=== PATIENT | female | born 1975 | race Caucasian/White ===

== ENCOUNTER → 2016-05-09 | Outpatient (CLI) | payer BC ==
[~2016-05-09] MED LIST: BNDL2 PO; EPP3/2 IM; ESCI10TA17 PO
[2016-05-09 14:40] LABS: BASO % 0.2 %; BASO ABS # 0.02 K/uL (0-0.2); COMPLETE YES; EOS % 6.7 %; HEMATOCRIT 39.4 % (37-47); IG% 0.3 %; LYMPH % 17.7 %; LYMPH ABS # 2.11 K/uL (1.2-3.4); MEAN CELL VOLUME 83.7 fL (80-100); MEAN CORPUSCULAR HEMOGLOBIN 27.4 pg (25-34); MEAN CORPUSCULAR HGB CONC 32.7 g/dl (32-36); MEAN PLATELET VOLUME 10.8 fL (7.4-10.4); MONO % 3.5 %; NEUT % 71.6 %; PLATELET COUNT 298 K/uL (130-400); RED BLOOD COUNT 4.71 M/uL (4.2-5.4)
[2016-05-09 14:48] LABS: ESTIMATED AVERAGE GLUCOSE 120 mg/dl; HA1C FLAG Normal (Normal)
== END | disposition home or self-care (01) ==
LOC: C.LABBC 11:31
PROVIDERS: ATTEND Internal Medicine
DX: E66.9 Obesity, unspecified (principal); R53.83 Other fatigue

== ENCOUNTER → 2016-05-13 | Outpatient (CLI) | payer BC ==
--- NOTE | 2016-05-15 13:23 | POLYSOMNOGRAPH REPORT ---
REFERRING PHYSICIAN: Dr. Pedro Arora. CLINICAL DATA: A 41-year-old female with a BMI of 46.82, referred by her physician for evaluation of possible sleep apnea. She has a history of fatigue. She snores and has apnea at night. On the evening of 05/13/2016, a home sleep apnea test was performed using a [employer] type 3 monitor. RECORDING RESULTS: Total recording time was 10 hours. The patient's estimated sleep time and patient monitoring time was 8.6 hours. RESPIRATORY DATA: There was no evidence of clinically significant sleep apnea/hypopnea. The DYLAN was 2.7. There were 2 obstructive apneic episodes and 21 hypopneic episodes. The longest respiratory event was 26 seconds. OXIMETRY DATA: No significant hypoxemia was seen. Oxygen edmundo was 89%. Mean saturation was 94%. HEART RATE DATA: Heart rates ranged from 53-69 beats per minute. SNORING DATA: Snoring was recorded throughout the night. IMPRESSION: No evidence of clinically significant sleep apnea/hypopnea or nocturnal hypoxemia to explain this patient's symptoms. RECOMMENDATIONS: Weight loss may be of benefit. The patient should continue to practice good sleep hygiene. DEBORA
== END | disposition home or self-care (01) ==
LOC: C.NEUR 14:22
PROVIDERS: ATTEND Internal Medicine
DX: R06.81 Apnea, not elsewhere classified (principal); E66.9 Obesity, unspecified; R06.83 Snoring

== ENCOUNTER → 2016-05-16 | Outpatient (CLI) | payer BC | END | disposition home or self-care (01) | LOC: C.PATH 08:49 | PROVIDERS: ATTEND Internal Medicine | DX: R22.32 Localized swelling, mass and lump, left upper limb (principal) ==

== ENCOUNTER 2018-06-14 15:02 | Observation (INO) ==
[2018-06-14] MEDS ORDERED: KETOROLAC TROMETHAMINE 15 MG/ML VIAL IV ONE (15:14)
[2018-06-14] MEDS ORDERED: SODIUM CHLORIDE 0.9% 1000ML 2,000 ML IV SCH (15:15)
[2018-06-14 15:48] LABS: Basophils # (auto) 0.01 K/uL (0-0.2); Basophils % (auto) 0.2 %; Eosinophils # (auto) 0.36 K/uL (0-0.5); Eosinophils % (auto) 8.9 %; Hematocrit (blood only) 38.8 % (37-47); Hemoglobin 13.1 g/dL (12.0-16.0); Immature Granulocytes # (auto) 0.01 K/uL (0.00-0.02); Immature Granulocytes % (auto) 0.2 %; Lymphocytes # (auto) 1.02 K/uL (1.2-3.4); Lymphocytes % (auto) 25.3 %; Mean Corpuscular Hgb Conc 33.8 g/dL (32-36); Mean Platelet Volume 10.4 fL (7.4-10.4); Monocytes % (auto) 7.4 %; Neutrophils # (auto) 2.33 K/uL (1.4-6.5); Platelet Count 232 K/uL (130-400); RDW Coefficient of Variation 14.1 % (11.5-14.5); RDW Standard Deviation 42.1 fL (36.4-46.3); Red Blood Count 4.73 M/uL (4.2-5.4); White Blood Count 4.03 K/uL (4.8-10.8)
--- NOTE | 2018-06-14 15:48 | XRay Report ---
XR chest 1V portable HISTORY: 43 years-old Female Dyspnea acute shortness of breath COMPARISON: Chest radiographs 11/19/2015 TECHNIQUE: Portable AP view the chest FINDINGS: Cardiomediastinal and hilar silhouettes are unremarkable. Mild right hemidiaphragmatic elevation is n ew from prior. There is a focal 3.6 cm opacity of the left upper lung. No pneumothorax, pleural effus ion or overt pulmonary edema. Bones appear grossly intact. IMPRESSION: 1. 3.6 cm ovoid opacity of the left upper lung may reflect an area of focal pneumonia. Correlate clin ically. Follow-up imaging to document resolution is recommended. 2. New mild right hemidiaphragmatic elevation. The above report was generated using voice recognition software. It may contain grammatical, syntax o r spelling errors. Electronically signed by: Iván Rajput M.D. 06/14/2018 3:47 PM
[2018-06-14 15:57] LABS: Partial Thromboplastin Ratio 1.1; Partial Thromboplastin Time 29.4 Seconds (21.0-31.0); Prothrombin Time 10.3 Seconds (9.0-12.0)
[2018-06-14 16:03] LABS: Albumin Level 3.1 gm/dl (3.4-5.0); Aspartate Aminotransferase 28 U/L (15-37); Blood Urea Nitrogen 8 mg/dl (7-18); Creatinine Clr Calc Pharmacy 122.8 ml/min; Potassium 3.7 mmol/L (3.5-5.1)
[2018-06-14 16:06] LABS: Bilirubin,Total 0.2 mg/dl (0.2-1)
[2018-06-14 16:19] LABS: Influenza A virus by PCR Neg for Influ A (Neg); Influenza B virus by PCR Neg for Influ B (Neg)
[2018-06-14] MEDS ORDERED: AZITHROMYCIN 250 MG TAB PO ONE (16:31)
[2018-06-14 16:59] LABS: Appearance Urine Clear (Clear); Bacteria Urine Automated Negative (Negative); Bilirubin Urine Negative (Negative); Blood Urine Trace (Negative); Color Urine Yellow; Epithelial Cell Urine Auto >30 /lpf (0-5); Glucose Urine UA Negative (Negative); Ketones Urine Negative (Negative); Leukocyte Esterase Urine Negative (Negative); Nitrite Urine Negative (Negative); Protein Urine Negative (Negative); RBC Urine Automated 0-4 /hpf (0-4); Specific Gravity Urine 1.008 (1.000-1.030); Urobilinogen Urine Negative (Negative)
[2018-06-14 17:04] LABS: Alanine Aminotransferase 30 U/L (12-78); BUN Creatinine Ratio 11.8 (10-20); Calcium 8.8 mg/dl (8.5-10.1); Carbon Dioxide 20 mmol/L (21-32); Chloride 108 mmol/L (98-107); Est GFR (African American) 123.6; Est GFR (Non-African American) 106.7; Glucose 102 mg/dl (70-99); Sodium 141 mmol/L (136-145)
[2018-06-14 17:09] LABS: Albumin Globulin Ratio 0.7 (0.9-2); Alkaline Phosphatase 129 U/L (45-117); Globulin 4.4 gm/dl (2.5-4.0); Total Protein 7.5 gm/dl (6.4-8.2); Troponin I < 0.015 ng/ml (0-0.045)
[2018-06-14] MEDS ORDERED: ASPIRIN CHEW 324 MG PO STA (18:27)
--- NOTE | 2018-06-14 19:16 | History & Physical Report ---
Date of Service June 14, 2018 Assessment & Plan (1) Pneumonia: left upper lobe, fits with one week of cough, sputum production, chills normal WBC, no fever, vitals stable will use Levaquin, says she gets some hives but nothing severe, will use Benadryl if needed will repeat CXR in a few weeks to ensure resolution NSS over night (2) Metabolic acidosis: mild, CO2 is 20 and AG is 13 likely from GI losses no signs of DKA or lactic acidosis will treat with IV fluids (3) Diarrhea: likely a viral illness experienced flu like symptoms earlier in the week clear liquids for now, IV fluids (4) Pre-syncope: vitals stable seemed to occur after severe coughing will observe on monitor describes occasional palpitations (5) Chest tightness: minimal ST depressions in lateral leads on initial EKG resolved on repeat EKG two hours later will repeat EKG in the AM cycle troponin History of Present Illness Chief Complaint: I feel terrible Primary Care Provider: Pedro Arora MD 43 yo female with history of allergies and DM type II, presents with flu like symptoms for about the past week. She says she has been coughing for a week, the past few days she started to have sputum production, it was white and yellow. She started to feel a little short of breath today. She said that she felt very weak and light headed, she was worried she was going to pass out. She said that intense coughing spell triggered the near syncope symptoms. She has also been experiencing some diarrhea and poor oral intake the past few days. She was concerned she had the flu. She admitted to some chest tightness but it was mostly with coughing. In the ED her vitals were stable. CXR showed a left upper lobe infiltrate. WBC was normal. Her Cr was stable but she had a mild metabolic acidosis. Initial EKG showed some mild ST depressions and TW inversions in the anterior/lateral leads. She was not having chest pain at that time. Troponin was negative. Repeat EKG showed resolution of those ST and TW changes. She was given Azithromycin due to numerous allergies and admission was requested. Allergies Allergy/AdvReac Type Severity Reaction Status Date / Time amoxicillin Allergy Severe ANAPHYLAXIS Verified 06/14/18 20:01 cefuroxime Allergy Intermediate RASH Verified 06/14/18 20:01 ciprofloxacin Allergy Intermediate HIVES Verified 04/28/19 20:01 doxycycline Allergy Intermediate LIP Verified 06/14/18 20:01 SWELLING Iodinated Contrast- Oral and Allergy Intermediate HIVES Verified 06/14/18 20:01 IV Dye metronidazole Allergy Intermediate HIVES Verified 06/14/18 20:01 sulfamethoxazole Allergy Intermediate Hives Verified 06/14/18 19:59 [From Bactrim] trimethoprim [From Bactrim] Allergy Intermediate Hives Verified 06/14/18 19:59 Cipro Allergy Unknown HIVES Unverified 11/19/15 18:44 Home Medications Home Medications Medication Instructions Recorded Confirmed Type EpiPen 1 dose INJ UD PRN 06/14/18 06/14/18 History azithromycin 250 mg PO DAILY 4 Days #4 tab 06/14/18 Rx [id number]-[id number] 2 ea PO QID PRN 06/14/18 06/14/18 History [Hanna-[place] Plus Cold (PE)] [id number] 30 ml PO Q4 PRN 06/14/18 06/14/18 History [Jennifer NyQuil Cold/Flu (cpm)] fluticasone propionate [Flonase 2 spray INTRANASAL BID 06/14/18 06/14/18 History Allergy Relief] metformin [Glucophage XR] 1,000 mg PO QPM 06/14/18 06/14/18 History montelukast [Singulair] 10 mg PO DAILY 06/14/18 06/14/18 History Past Med/Surg History Medical History Pneumonia (Acute) Kidney stones Family History Father , at age 47 Chronic ITP (idiopathic thrombocytopenia) Lung disease Social History Preferred Language: Thai 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 Beliefs That Will Affect Care: None Current Living Situation: Spouse Other Information That Helps Us Care for You: No Feels Safe at Home: Yes Safety Concerns: Feels Safe At This Time Smoking Status: Never smoker Do You Dip or Chew Tobacco: No Second Hand Exposure: No Hx Alcohol Use: Yes Alcohol type: wine Hx Substance Use: No Review of Systems Review of Systems: All systems reviewed & are unremarkable except as noted in HPI & below Constitutional: + fever, + chills, + sweats, + malaise and + weakness; no insomnia Respiratory: + cough, + chest congestion, + dyspnea on exertion and + pain with cough; no hemoptysis and no wheezing Cardiovascular: + chest pain (described as tightness, with cough) and + lightheadedness; no chest pain at rest, no dyspnea, no syncope and no edema Gastrointestinal: + diarrhea/loose stools; no abdominal pain, no nausea, no vomiting and no constipation Genitourinary: no dysuria and no difficulty urinating Psychiatric: + anxiety Physical Exam Constitutional: WD/WN, vitals as above + obese Eyes: PERRL, conjunctivae normal, anicteric sclerae ENMT: external ear and nose normal, oropharynx normal Neck: trachea midline, no thyromegaly Respiratory: normal respiratory effort, lungs clear to auscultation Cardiovascular: RRR, no murmur, no edema Chest (Breasts): Chest: normal inspection of chest Gastrointestinal (Abdomen): normal bowel sounds, soft, nontender, no he patosplenomegaly Musculoskeletal: no cyanosis or clubbing, extremities motor strength 5/5 Skin: no rashes, warm and dry Neurologic: patellar DTR's 2+ bilat, sensation intact Psychiatric: A+Ox3, euthymic affect Lymphatic: no cervical or axillary lymphadenopathy Results & Data Vital Signs (Past 12 Hours) Vital Signs Temp Pulse Pulse Resp BP BP Pulse Ox 06/14/18 18:26 82 18 138/100 98 06/14/18 16:09 86 18 162/101 H 97 06/14/18 15:05 36.7 C 93 H 18 144/98 H 95 Laboratory Results Laboratory Results - last 24 hr 06/14/18 06/14/18 06/14/18 15:34 15:34 15:34 WBC 4.03 L RBC 4.73 Hgb 13.1 Hct 38.8 MCV 82.0 MCH 27.7 MCHC 33.8 RDW Std Deviation 42.1 RDW Coeff of Kojo 14.1 Plt Count 232 MPV 10.4 Immature Gran % (Auto) 0.2 Neut % (Auto) 58.0 Lymph % (Auto) 25.3 [place] % (Auto) 7.4 Eos % (Auto) 8.9 Baso % (Auto) 0.2 Immature Gran # (Auto) 0.01 Neut # (Auto) 2.33 Lymph # (Auto) 1.02 L [place] # (Auto) 0.30 Eos # (Auto) 0.36 Baso # (Auto) 0.01 PT 10.3 INR 1.0 APTT 29.4 PTT Ratio 1.1 Sodium 141 Potassium 3.7 Chloride 108 H Carbon Dioxide 20 L Anion Gap 13.0 H BUN 8 Creatinine 0.66 Est Cr Clr Drug Dosing 122.8 Est GFR ( Amer) 123.6 Est GFR (Non-Af Amer) 106.7 BUN/Creatinine Ratio 11.8 Glucose 102 H Calcium 8.8 Total Bilirubin 0.2 AST 28 ALT 30 Alkaline Phosphatase 129 H Troponin I < 0.015 Total Protein 7.5 Albumin 3.1 L Globulin 4.4 H Albumin/Globulin Ratio 0.7 L Urine Color Urine Appearance Urine pH Ur Specific Dennard Urine Protein Urine Glucose (UA) Urine Ketones Urine Blood Urine Nitrite Urine Bilirubin Urine Urobilinogen Ur Leukocyte Esterase Urine WBC (Auto) Urine RBC (Auto) U Hyaline Cast (Auto) U Epithel Cells (Auto) Urine Bacteria (Auto) Influenza Type A (PCR) Influenza Type B (PCR) 06/14/18 06/14/18 15:34 16:46 WBC RBC Hgb Hct MCV MCH MCHC RDW Std Deviation RDW Coeff of Kojo Plt Count MPV Immature Gran % (Auto) Neut % (Auto) Lymph % (Auto) [place] % (Auto) Eos % (Auto) Baso % (Auto) Immature Gran # (Auto) Neut # (Auto) Lymph # (Auto) [place] # (Auto) Eos # (Auto) Baso # (Auto) PT INR APTT PTT Ratio Sodium Potassium Chloride Carbon Dioxide Anion Gap BUN Creatinine Est Cr Clr Drug Dosing Est GFR ( Amer) Est GFR (Non-Af Amer) BUN/Creatinine Ratio Glucose Calcium Total Bilirubin AST ALT Alkaline Phosphatase Troponin I Total Protein Albumin Globulin Albumin/Globulin Ratio Urine Color Yellow Urine Appearance Clear Urine pH 8.0 H Ur Specific Dennard 1.008 Urine Protein Negative Urine Glucose (UA) Negative Urine Ketones Negative Urine Blood Trace H Urine Nitrite Negative Urine Bilirubin Negative Urine Urobilinogen Negative Ur Leukocyte Esterase Negative Urine WBC (Auto) 1-5 Urine RBC (Auto) 0-4 U Hyaline Cast (Auto) 1-5 U Epithel Cells (Auto) >30 H Urine Bacteria (Auto) Negative Influenza Type A (PCR) Neg for Influ A Influenza Type B (PCR) Neg for Influ B Diagnostic Findings XR chest 1V portable HISTORY: 43 years-old Female Dyspnea acute shortness of breath COMPARISON: Chest radiographs 11/19/2015 TECHNIQUE: Portable AP view the chest FINDINGS: Cardiomediastinal and hilar silhouettes are unremarkable. Mild right hemidiaphragmatic elevation is new from prior. There is a focal 3.6 cm opacity of the left upper lung. No pneumothorax, pleural effusion or overt pulmonary edema. Bones appear grossly intact. IMPRESSION: 1. 3.6 cm ovoid opacity of the left upper lung may reflect an area of focal pneumonia. Correlate clinically. Follow-up imaging to document resolution is recommended. 2. New mild right hemidiaphragmatic elevation. ECG Indication: chest pain Rhythm: sinus bradycardia Findings: + ST depression (minimal in lateral leads, resolved on repeat EKG) Code Status & VTE Plan Code Status full code VTE Prophylaxis Plan VTE Prophylaxis will be ordered: Yes (1) Pneumonia Laterality: unspecified laterality Lung location: unspecified part of lung Pneumonia type: due to unspecified organism Qualified Code(s): J18.9 - Pneumonia, unspecified organism
[2018-06-14] MEDS ORDERED: DiphenhydrAMINE HCL 50 MG/ML VIAL IV PRN (20:34)
[2018-06-14] MEDS ORDERED: ACETAMINOPHEN 325 MG TAB PO PRN (20:34)
[2018-06-14] MEDS ORDERED: ONDANSETRON INJ 2 MG/ML 2 ML VIAL IV PRN (20:34)
[2018-06-14] MEDS: SODIUM CHLORIDE 0.9% 1000ML 1,000 ML IV SCH (20:50)
[2018-06-14] MEDS ORDERED: FLUTICASONE PROPIONATE NA SPR 16 GM BTL SCH (21:00)
[2018-06-14] MEDS ORDERED: LEVOFLOXACIN/D5W 750 MG/150 ML BAG IV SCH (21:00)
--- NOTE | 2018-06-14 21:24 | Emergency Department Note ---
Entered by Virgilio Lowe acting as a scribe for Ab Calles DO History of Present Illness General Chief complaint: Flu Like Symptoms Stated complaint: FLU LIKE SX Source: patient History of Present Illness Onset (ago): day(s) 3 Location: upper extremity (joints) and lower extremity (joints) Pain Consistency: + other (persistent) Quality: + other (flu-like symptoms) Associated symptoms: + other (nausea, diarrhea, dizziness, cough; denies visual changes ); no headaches The patient is a 43 year old female who presents to the Emergency Room with c omplaints of persistent flu-like symptoms beginning three days ago. The patient reports that her symptoms started with body/joint aches and chills. Two days ago she developed a cough and her body aches started to worsen. She notes some chest tightness that she attributes to coughing. She states that she feels dizzy and near-synocpal. She reports some nausea and 4-5 episodes of diarrhea. She notes bilateral ear discomfort. She has not been monitoring her temperature and is unsure if she has had any fevers. She denies urinary symptoms, visual changes, or headaches. She denies a history of asthma or COPD. She does admit to a chest heaviness/tightness which is been present for the past 24 hours. She does admit to feeling dizzy as well. Home Medications Home Medications Medication Instructions Recorded Confirmed Type EpiPen 1 dose INJ UD PRN 06/14/18 06/14/18 History azithromycin 250 mg PO DAILY 4 Days #4 tab 06/14/18 Rx fktvboevurx-vqeqoalpteb-[id number] 2 ea PO QID PRN 06/14/18 06/14/18 History [Hanna-[place] Plus Cold (PE)] [id number]-[id number] 30 ml PO Q4 PRN 06/14/18 06/14/18 History [Jennifer NyQuil Cold/Flu (cpm)] fluticasone propionate [Flonase 2 spray INTRANASAL BID 06/14/18 06/14/18 History Allergy Relief] metformin [Glucophage XR] 1,000 mg PO QPM 06/14/18 06/14/18 History montelukast [Singulair] 10 mg PO DAILY 06/14/18 06/14/18 History Allergies Allergy/AdvReac Type Severity Reaction Status Date / Time amoxicillin Allergy Severe ANAPHYLAXIS Verified 06/14/18 20:01 cefuroxime Allergy Intermediate RASH Verified 06/14/18 20:01 ciprofloxacin Allergy Intermediate HIVES Verified 06/14/18 20:01 doxycycline Allergy Intermediate LIP Verified 06/14/18 20:01 SWELLING Iodinated Contrast- Oral and Allergy Intermediate HIVES Verified 06/14/18 20:01 IV Dye metronidazole Allergy Intermediate HIVES Verified 06/14/18 20:01 sulfamethoxazole Allergy Intermediate Hives Verified 06/14/18 19:59 [From Bactrim] trimethoprim [From Bactrim] Allergy Intermediate Hives Verified 06/14/18 19:59 Cipro Allergy Unknown HIVES Unverified 11/19/15 18:44 Past Med/Surg History Medical History Pneumonia (Acute) Kidney stones Family History Father , at age 47 Chronic ITP (idiopathic thrombocytopenia) Lung disease Social History Preferred Language: Bulgarian Continuous Process [employer] Required: No Beliefs That Will Affect Care: None Current Living Situation: Spouse Other Information That Helps Us Care for You: No Feels Safe at Home: Yes Safety Concerns: Feels Safe At This Time Smoking Status: Never smoker Do You Dip or Chew Tobacco: No Second Hand Exposure: No Hx Alcohol Use: Yes Alcohol type: wine Hx Substance Use: No Review of Systems See HPI for pertinent positives & negatives. and A total of 10 systems reviewed and were otherwise negative Physical Exam Vital Signs Vital Signs - 24 hr 06/14/18 15:05 06/14/18 16:09 06/14/18 18:26 Temperature 36.7 C Temperature Source Oral Sepsis Recent Fever Within 48 Hours No Sepsis New/Unexplained Change in Mental Status No Sepsis Action Taken by Nursing No Action Required Pulse Rate 93 H Pulse Rate [Right Finger] 86 82 Pulse Rhythm [Right Finger] Pulse Strength [Right Finger] Respiratory Rate 18 18 18 Respiratory Effort / Characteristics Non-Labored Spontaneous Respiratory Depth Normal Respiratory Pattern Regular Blood Pressure 144/98 H Blood Pressure [Left Arm] Blood Pressure [Right Arm] 162/101 H 138/100 Blood Pressure Mean 113 Blood Pressure Mean [Left Arm] Blood Pressure Mean [Right Arm] 121 112 Blood Pressure Position Sitting Blood Pressure Position [Left Arm] Blood Pressure Position [Right Arm] Lying Pulse Oximetry 95 97 98 Oxygen Delivery Method Room Air Room Air 06/14/18 19:44 06/14/18 20:17 06/14/18 20:52 Temperature 36.5 C Temperature Source Oral Sepsis Recent Fever Within 48 Hours Sepsis New/Unexplained Change in Mental Status Sepsis Action Taken by Nursing Pulse Rate 80 Pulse Rate [Right Finger] 87 111 H Pulse Rhythm [Right Finger] Regular Pulse Strength [Right Finger] Normal Respiratory Rate 18 18 Respiratory Effort / Characteristics Non-Labored Spontaneous Respiratory Depth Normal Respiratory Pattern Regular Blood Pressure Blood Pressure [Left Arm] 135/84 Blood Pressure [Right Arm] 155/101 H Blood Pressure Mean Blood Pressure Mean [Left Arm] 101 Blood Pressure Mean [Right Arm] 119 Blood Pressure Position Blood Pressure Position [Left Arm] Sitting Blood Pressure Position [Right Arm] Pulse Oximetry 98 96 Oxygen Delivery Method Room Air GENERAL: sitting up in bed, persistent dry cough, well appearing, well n ourished, no distress, non-toxic EYE EXAM: normal conjunctiva OROPHARYNX: no exudate, no erythema, lips, buccal mucosa, and tongue normal and mucous membranes are moist EARS: TMs clear bilaterally. NECK: supple, no nuchal rigidity, no adenopathy, non-tender LUNGS: Clear to auscultation. Normal chest wall mechanics HEART: no murmurs, S1 normal and S2 normal ABDOMEN: abdomen soft, non-tender, normo-active bowel sounds, no masses, no rebound or guarding. BACK: Back is symmetrical on inspection and there is no deformity, no midline tenderness, no CVA tenderness. SKIN: no rashes and no bruising UPPER EXTREMITIES: upper extremities are grossly normal. LOWER EXTREMITIES: No pitting edema. NEURO EXAM: Normal sensorium, cranial nerves II-XII grossly intact, normal speech, no gross weakness of arms, no gross weakness of legs. Gross sensation intact. Course ED COURSE: Vital signs were reviewed and showed hypertension felt to be situational The patients medical record was reviewed The above diagnostic studies were performed and reviewed. ED treatments and interventions as stated above. 1510: The patient was evaluated in room B8. A complete history and physical examination was performed. 1845: I consulted Dr. Telles [facility] Hospitalist. The patient will be reevaluated for hospitalization. Based on the patients age, coexisting illnesses, exam and lab findings the decision to treat as an inpatient was made. The patient remained stable while under my care. The patient will be evaluated for further management. Administered Medications Sodium Chloride (Nss 1000ml) 1,000 mls @ 100 mls/hr IV .Q10H IADEN Stop: 07/14/18 20:33 Last Admin: 06/14/18 20:50 Dose: 100 mls/hr Documented by: [id number] Discontinued Medications Aspirin (Aspirin) 324 mg PO NOW STA Stop: 06/14/18 18:28 Last Admin: 06/14/18 18:43 Dose: 324 mg Documented by: [id number] Azithromycin (Zithromax) 500 mg PO NOW ONE Stop: 06/14/18 16:32 Last Admin: 06/14/18 16:44 Dose: 500 mg Documented by: [id number] Sodium Chloride (Nss 1000ml) 2,000 mls @ 999 mls/hr IV .Q2H1M AIDEN Stop: 06/14/18 17:15 Last Infusion: 06/14/18 17:28 Dose: 0 mls/hr Documented by: [id number] Admin: 06/14/18 15:35 Dose: 999 mls/hr Documented by: [id number] Ketorolac Tromethamine (Toradol) 15 mg IV NOW ONE Stop: 06/14/18 15:15 Last Admin: 06/14/18 15:35 Dose: 15 mg Documented by: [id number] Medical Decision Making Differential Diagnosis Differential diagnoses includes but is not limited to pneumonia, bronchitis, COPD/Asthma exacerbation, pneumothorax, pulmonary embolism, congestive heart failure, acute coronary syndrome Medical Records Attestation: I reviewed the patient's medical records. Home Medications Current Medication List: was personally reviewed by me Laboratory Data Attestation: I reviewed the patient's lab results. Result diagrams: 06/14/18 15:34 06/14/18 15:34 Lab Results 06/14/18 06/14/18 06/14/18 Range/Units 15:34 15:34 15:34 WBC 4.03 L (4.8-10.8) K/uL RBC 4.73 (4.2-5.4) M/uL Hgb 13.1 (12.0-16.0) g/dL Hct 38.8 (37-47) % MCV 82.0 (80-100) fL MCH 27.7 (25-34) pg MCHC 33.8 (32-36) g/dL RDW Std Deviation 42.1 (36.4-46.3) fL RDW Coeff of [place] 14.1 (11.5-14.5) % Plt Count 232 (130-400) K/uL MPV 10.4 (7.4-10.4) fL Immature Gran % (Auto) 0.2 % Neut % (Auto) 58.0 % Lymph % (Auto) 25.3 % [place] % (Auto) 7.4 % Eos % (Auto) 8.9 % Baso % (Auto) 0.2 % Immature Gran # (Auto) 0.01 (0.00-0.02) K/uL Neut # (Auto) 2.33 (1.4-6.5) K/uL Lymph # (Auto) 1.02 L (1.2-3.4) K/uL [place] # (Auto) 0.30 (0.11-0.59) K/uL Eos # (Auto) 0.36 (0-0.5) K/uL Baso # (Auto) 0.01 (0-0.2) K/uL PT 10.3 (9.0-12.0) Seconds INR 1.0 (0.9-1.1) APTT 29.4 (21.0-31.0) Seconds PTT Ratio 1.1 Sodium 141 (136-145) mmol/L Potassium 3.7 (3.5-5.1) mmol/L Chloride 108 H (98-107) mmol/L Carbon Dioxide 20 L (21-32) mmol/L Anion Gap 13.0 H (3-11) BUN 8 (7-18) mg/dl Creatinine 0.66 (0.6-1.2) mg/dl Est Cr Clr Drug Dosing 122.8 ml/min Est GFR ( Amer) 123.6 Est GFR (Non-Af Amer) 106.7 BUN/Creatinine Ratio 11.8 (10-20) Glucose 102 H (70-99) mg/dl Calcium 8.8 (8.5-10.1) mg/dl Total Bilirubin 0.2 (0.2-1) mg/dl AST 28 (15-37) U/L ALT 30 (12-78) U/L Alkaline Phosphatase 129 H (45-117) U/L Troponin I < 0.015 (0-0.045) ng/ml Total Protein 7.5 (6.4-8.2) gm/dl Albumin 3.1 L (3.4-5.0) gm/dl Globulin 4.4 H (2.5-4.0) gm/dl Albumin/Globulin Ratio 0.7 L (0.9-2) Urine Color Urine Appearance (Clear) Urine pH (4.5-7.5) Ur Specific [place] (1.000-1.030) Urine Protein (Negative) Urine Glucose (UA) (Negative) Urine Ketones (Negative) Urine Blood (Negative) Urine Nitrite (Negative) Urine Bilirubin (Negative) Urine Urobilinogen (Negative) Ur Leukocyte Esterase (Negative) Urine WBC (Auto) (0-5) /hpf Urine RBC (Auto) (0-4) /hpf U Hyaline Cast (Auto) (0-5) /lpf U Epithel Cells (Auto) (0-5) /lpf Urine Bacteria (Auto) (Negative) Influenza Type A (PCR) (Neg) Influenza Type B (PCR) (Neg) 06/14/18 06/14/18 Range/Units 15:34 16:46 WBC (4.8-10.8) K/uL RBC (4.2-5.4) M/uL Hgb (12.0-16.0) g/dL Hct (37-47) % MCV (80-100) fL MCH (25-34) pg MCHC (32-36) g/dL RDW Std Deviation (36.4-46.3) fL RDW Coeff of [place] (11.5-14.5) % Plt Count (130-400) K/uL MPV (7.4-10.4) fL Immature Gran % (Auto) % Neut % (Auto) % Lymph % (Auto) % [place] % (Auto) % Eos % (Auto) % Baso % (Auto) % Immature Gran # (Auto) (0.00-0.02) K/uL Neut # (Auto) (1.4-6.5) K/uL Lymph # (Auto) (1.2-3.4) K/uL [place] # (Auto) (0.11-0.59) K/uL Eos # (Auto) (0-0.5) K/uL Baso # (Auto) (0-0.2) K/uL PT (9.0-12.0) Seconds INR (0.9-1.1) APTT (21.0-31.0) Seconds PTT Ratio Sodium (136-145) mmol/L Potassium (3.5-5.1) mmol/L Chloride (98-107) mmol/L Carbon Dioxide (21-32) mmol/L Anion Gap (3-11) BUN (7-18) mg/dl Creatinine (0.6-1.2) mg/dl Est Cr Clr Drug Dosing ml/min Est GFR ( Amer) Est GFR (Non-Af Amer) BUN/Creatinine Ratio (10-20) Glucose (70-99) mg/dl Calcium (8.5-10.1) mg/dl Total Bilirubin (0.2-1) mg/dl AST (15-37) U/L ALT (12-78) U/L Alkaline Phosphatase (45-117) U/L Troponin I (0-0.045) ng/ml Total Protein (6.4-8.2) gm/dl Albumin (3.4-5.0) gm/dl Globulin (2.5-4.0) gm/dl Albumin/Globulin Ratio (0.9-2) Urine Color Yellow Urine Appearance Clear (Clear) Urine pH 8.0 H (4.5-7.5) Ur Specific [place] 1.008 (1.000-1.030) Urine Protein Negative (Negative) Urine Glucose (UA) Negative (Negative) Urine Ketones Negative (Negative) Urine Blood Trace H (Negative) Urine Nitrite Negative (Negative) Urine Bilirubin Negative (Negative) Urine Urobilinogen Negative (Negative) Ur Leukocyte Esterase Negative (Negative) Urine WBC (Auto) 1-5 (0-5) /hpf Urine RBC (Auto) 0-4 (0-4) /hpf U Hyaline Cast (Auto) 1-5 (0-5) /lpf U Epithel Cells (Auto) >30 H (0-5) /lpf Urine Bacteria (Auto) Negative (Negative) Influenza Type A (PCR) Neg for Influ A (Neg) Influenza Type B (PCR) Neg for Influ B (Neg) Imaging Data Radiologist's Impression: Radiology results as stated below per my review and the radiologist's interpretation: XR chest 1V portable HISTORY: 43 years-old Female Dyspnea acute shortness of breath COMPARISON: Chest radiographs 11/19/2015 TECHNIQUE: Portable AP view the chest FINDINGS: Cardiomediastinal and hilar silhouettes are unremarkable. Mild right hemidiaphragmatic elevation is new from prior. There is a focal 3.6 cm opacity of the left upper lung. No pneumothorax, pleural effusion or overt pulmonary edema. Bones appear grossly intact. IMPRESSION: 1. 3.6 cm ovoid opacity of the left upper lung may reflect an area of focal pneumonia. Correlate clinically. Follow-up imaging to document resolution is recommended. 2. New mild right hemidiaphragmatic elevation. The above report was generated using voice recognition software. It may contain grammatical, syntax or spelling errors. Electronically signed by: Iván Rajput M.D. 06/14/2018 3:47 PM ECG Data Attestation: I personally reviewed and interpreted this ECG as follows: Indication: chest pain Rate (beats per minute): 88 Rhythm: sinus rhythm Findings: + other (normal axis), + ST depression (Anterolateral) and + T-wave inversion (Septal) Comparison ECG Date: from (11/19/15) Change: the following changes noted (T-wave inversions are old. ST depressions are old in V3-V4 and new in V5-V6) Additional Comments: Repeat EKG shows sinus rhythm at 82 bpm with a normal axis. There is T-wave inversion in the septal leads. ST depressions in V3 and V4. T- wave flattening in V5 and V6. This EKG shows no significant change from 11/19/15. Blood Pressure Blood Pressure Findings: Elevated blood pressure Blood Pressure Disposition: elevated BP felt to be situational MDM Narrative Patient is a 43-year-old female with a past medical history of diabetes that presents the ER for cough congestion associate with some chest heaviness. EKG shows ST depressions which are new in comparison to previous in V4 V5 and V6. Labs were obtained showed a mild leukopenia at 4000. No significant anemia. INR was unremarkable. BMP with a slightly low CO2 at 20. Initial troponin was negative. UA was contaminant with epithelial cells. Influenza was negative. Chest x-ray does suggest a pneumonia. Question EKG change occurring secondary to stress/strain of the infection versus prior EKG change unlikely ACS. Discussed with cardiology and they agree. Obtain a repeat EKG Creatinine was normal/returned back to normal. With these dynamic changes did elect to discuss case with the hospitalist. Patient was given IV fluids and azithromycin. Patient was also given aspirin. She was admited for further work-up. Impression & Plan Pneumonia, Acute electrocardiography changes Discharge Plan Visit Data *Final* Discharge Date/Time: 06/14/18 20:06 Chief Complaint: Flu Like Symptoms Stated Complaint: FLU LIKE SX ED Provider: Ab Calles Discharge Problem: Pneumonia, Acute electrocardiography changes Patient Disposition: Admitted As Inpatient Discharge Instructions Interventions: ED Discharge Assessment Last Done: 06/14/18 20:06 Discharge Problem: Pneumonia Qualifiers: Pneumonia type: due to unspecified organism Laterality: unspecified laterality Lung location: unspecified part of lung Qualified Code(s): J18.9 - Pneumonia, unspecified organism The scribe's documentation has been prepared under my direction and personally reviewed by me in its entirety. I confirm that the note above accurately reflects all work, treatment, procedures, and medical decision making performed by me.
[2018-06-14] MEDS: HEPARIN SOD 5,000 UNIT/0.5 ML VIAL SQ SCH (22:15)
[2018-06-15] MEDS: HEPARIN SOD 5,000 UNIT/0.5 ML VIAL SQ SCH (06:08)
[2018-06-15] MEDS: SODIUM CHLORIDE 0.9% 1000ML 1,000 ML IV SCH (07:55)
[2018-06-15 08:44] LABS: Basophils # (auto) 0.01 K/uL (0-0.2); Basophils % (auto) 0.3 %; Eosinophils # (auto) 0.26 K/uL (0-0.5); Eosinophils % (auto) 7.8 %; Hematocrit (blood only) 35.4 % (37-47); Hemoglobin 11.5 g/dL (12.0-16.0); Immature Granulocytes # (auto) 0.02 K/uL (0.00-0.02); Immature Granulocytes % (auto) 0.6 %; Lymphocytes # (auto) 1.08 K/uL (1.2-3.4); Lymphocytes % (auto) 32.4 %; Mean Corpuscular Hgb Conc 32.5 g/dL (32-36); Mean Corpuscular Volume 82.5 fL (80-100); Monocytes # (auto) 0.32 K/uL (0.11-0.59); Monocytes % (auto) 9.6 %; Neutrophils # (auto) 1.64 K/uL (1.4-6.5); Neutrophils % (auto) 49.3 %; Platelet Count 220 K/uL (130-400); RDW Coefficient of Variation 14.3 % (11.5-14.5); RDW Standard Deviation 42.8 fL (36.4-46.3); Red Blood Count 4.29 M/uL (4.2-5.4); White Blood Count 3.33 K/uL (4.8-10.8)
[2018-06-15 08:55] LABS: BUN Creatinine Ratio 8.9 (10-20); Creatinine Clr Calc Pharmacy 134.7 ml/min; Est GFR (African American) 125.6; Est GFR (Non-African American) 108.3; Potassium 3.7 mmol/L (3.5-5.1)
[2018-06-15] MEDS ORDERED: MONTELUKAST SODIUM 10 MG TABLET PO SCH (09:00)
--- NOTE | 2018-06-15 10:00 | Discharge Summary ---
Date of Service June 15, 2018 Admission HPI Per Admitting Provider 43 yo female with history of allergies and DM type II, presents with flu like symptoms for about the past week. She says she has been coughing for a week, the past few days she started to have sputum production, it was white and yellow. She started to feel a little short of breath today. She said that she felt very weak and light headed, she was worried she was going to pass out. She said that intense coughing spell triggered the near syncope symptoms. She has also been experiencing some diarrhea and poor oral intake the past few days. She was concerned she had the flu. She admitted to some chest tightness but it was mostly with coughing. In the ED her vitals were stable. CXR showed a left upper lobe infiltrate. WBC was normal. Her Cr was stable but she had a mild metabolic acidosis. Initial EKG showed some mild ST depressions and TW inversions in the anterior/lateral leads. She was not having chest pain at that time. Troponin was negative. Repeat EKG showed resolution of those ST and TW changes. She was given Azithromycin due to numerous allergies and admission was requested. Admission Exam Per Admitting Provider Constitutional: WD/WN, vitals as above + obese Eyes: PERRL, conjunctivae normal, anicteric sclerae ENMT: external ear and nose normal, oropharynx normal Neck: trachea midline, no thyromegaly Respiratory: normal respiratory effort, lungs clear to auscultation Cardiovascular: RRR, no murmur, no edema Chest (Breasts): Chest: normal inspection of chest Gastrointestinal (Abdomen): normal bowel sounds, soft, nontender, no hepatosplenomegaly Musculoskeletal: no cyanosis or clubbing, extremities motor strength 5/5 Skin: no rashes, warm and dry Neurologic: patellar DTR's 2+ bilat, sensation intact Psychiatric: A+Ox3, euthymic affect Lymphatic: no cervical or axillary lymphadenopathy Principal Diagnosis Left upper lobe pneumonia Discharge Exam Constitutional WD/WN, vitals as above + obese Eyes PERRL, conjunctivae normal, anicteric sclerae ENMT external ear and nose normal, oropharynx normal Neck trachea midline, no thyromegaly Respiratory normal respiratory effort, lungs clear to auscultation Cardiovascular RRR, no murmur, no edema Chest (Breasts) Chest: normal inspection of chest Gastrointestinal (Abdomen) normal bowel sounds, soft, nontender, no hepatosplenomegaly Musculoskeletal no cyanosis or clubbing, extremities motor strength 5/5 Skin no rashes, warm and dry Neurologic patellar DTR's 2+ bilat, sensation intact Psychiatric A+Ox3, euthymic affect Lymphatic no cervical or axillary lymphadenopathy Discharge Data Allergies Allergy/AdvReac Type Severity Reaction Status Date / Time amoxicillin Allergy Severe ANAPHYLAXIS Verified 06/14/18 20:01 cefuroxime Allergy Intermediate RASH Verified 06/14/18 20:01 ciprofloxacin Allergy Intermediate HIVES Verified 06/14/18 20:01 doxycycline Allergy Intermediate LIP Verified 06/14/18 20:01 SWELLING Iodinated Contrast- Oral and Allergy Intermediate HIVES Verified 06/14/18 20:01 IV Dye metronidazole Allergy Intermediate HIVES Verified 06/14/18 20:01 sulfamethoxazole Allergy Intermediate Hives Verified 06/14/18 19:59 [From Bactrim] trimethoprim [From Bactrim] Allergy Intermediate Hives Verified 06/14/18 19:59 Cipro Allergy Unknown HIVES Unverified 11/19/15 18:44 Hospital Course (1) Pneumonia: left upper lobe, fits with one week of cough, sputum production, chills normal WBC, no fever, vitals stable will use Levaquin, says she gets some hives but nothing severe, will use Benadryl if needed most likely patient developed secondary bacterial pneumonia on top of viral bronchitis feeling better overnight, will treat with Levaquin 750mg daily x 4 more days for 5 day total course SHOULD GET REPEAT CXR IN SIX WEEKS TO DOCUMENT CLEARANCE OF INFILTRATE (2) Metabolic acidosis: mild, CO2 is 20 and AG is 13 likely from GI losses no signs of DKA or lactic acidosis responded well to IV fluids CO2 normal at 24 this morning, AG normal encouraged to stay well hydrated (3) Diarrhea: likely a viral illness experienced flu like symptoms earlier in the week can eat as tolerated reports that her had diarrhea a week prior to her symptoms (4) Pre-syncope: vitals stable seemed to occur after severe coughing will observe on monitor describes occasional palpitations no issues on the monitor (5) Chest tightness: minimal ST depressions in lateral leads on initial EKG resolved on repeat EKG two hours later repeat EKG this morning is normal troponin negative x 3 sets no further work up at this time Total Time Total Time Spent Total Time Spent (In Minutes): 35 minutes Total Time Includes: Examination of the Patient, Discharge Planning, Medication Reconciliation and Other (discussing with her family) Discharge Plan Discharge Items Patient Disposition: Home - Self-Care Reason For Visit: PNEUMONIA,METABOLIC ACIDOSIS Discharge Diagnosis: Left upper lobe pneumonia Diarrhea Mild metabolic acidosis Condition: Good Discharge Goals: Decrease discomfort and Improve disease control Activity: Resume your previous activity Lifting: None Bathing: No limitations Exercise/Sports: None Driving/Machine Use: No limitations Non-emergency contact: Primary Care Provider Call non-emergency contact if: you have any medication questions, your symptoms worsen and you have a fever Follow-up/Referrals: Pedro Arora MD [Primary Care Provider] - Diet: Carb Consistent or DM2 Addtl Provider Instructions: Medications: - LEVOFLOXACIN: take for 4 more days, next dose due tomorrow morning Left upper lobe pneumonia: infiltrate seen on chest x-ray vitals stable, no hypoxia, WBC normal so this is mild case of pneumonia most likely a secondary bacterial pneumonia on top of viral bronchitis complete the Levaquin, use benadryl for any rash SHOULD GET A REPEAT CHEST X-RAY IN 6 WEEKS TO DOCUMENT RESOLUTION OF INFILTRATE Diarrhea, mild metabolic acidosis due to acute viral illness acidosis resolved with IV fluids recommend staying well hydrated the next few days, get rest FOLLOW UP - call office of Dr. Arora for follow up next week Prescriptions: New levofloxacin [Levaquin] 750 mg tablet 750 mg PO DAILY 4 Days Qty: 4 RF: 0 Continued montelukast [Singulair] 10 mg tablet 10 mg PO DAILY RF: 0 fluticasone propionate [Flonase Allergy Relief] 50 mcg/actuation [place],Suspension 2 spray INTRANASAL BID RF: 0 metformin [Glucophage XR] 500 mg tablet extended release 24 hr 1,000 mg PO QPM RF: 0 Hanna-[place] Plus Cold (PE) 2-7.8-325 mg Tablet, Effervescent 2 ea PO QID PRN (Reason: CLOD & FLU SYMPTOMS) RF: 0 Vicks NyQuil Cold/Flu (cpm) 4-30-650 mg/30 mL Liquid 30 ml PO Q4 PRN (Reason: COLD & FLU SYMPTTOMS) RF: 0 EpiPen 1 dose INJ UD PRN (Reason: Allergic Reaction) RF: 0 Stand-Alone Forms: [facility] Discharge Orders: Discharge Order (Routine); Ordered 06/15/18 Ordered By: Venkata Telles Admission Data Admit Date/Time: 06/14/18 18:59 Attending Provider: Venkata Telles Admit Provider: Venkata Telles Primary Care Provider: Pedro Arora Service: Telemetry
--- OUTSIDE RECORDS SUMMARY | 2018-06-15 22:44 | External Medical Summary | Continuity of Care Document ---
:1975 Author Name Michelle Blankenship, Provider Address Unavailable Unavailable , Care Team Providers Name Role Phone Pedro Arora M.D. Unavailable [email or web address] Ryan Mcbride M.D. Unavailable [email or web address] Esme Blankenship Unavailable [email or web address] Jerri Blankenship Unavailable [email or web address] Ulysses ELIZABETH Unavailable [email or web address] Ulysses Blankenship Unavailable Unavailable Tatiana Zamora III, M.D. Unavailable [email or web address] [email or web address], M Unavailable Unavailable Unavailable Unavailable Unavailable Problems Abnormal fasting glucose (790.29) (R73.01) Obesity, morbid (278.01) (E66.01) Bilateral lower extremity edema (782.3) (R60.0) Prediabetes (790.29) (R73.03) Allergic rhinitis (477.9) (J30.9) BMI 45.0-49.9, adult (V85.42) (Z68.42) Reactive airway disease (493.90) (J45.909) Obesity (278.00) (E66.9) Acute sinusitis (461.9) (J01.90) Fatigue (780.79) (R53.83) Abnormal weight gain (783.1) (R63.5) Generalized anxiety disorder (300.02) (F41.1) Foreign body reaction to tattoo dyes (709.4) (L92.3) Axillary mass, left (782.2) (R22.32) Apnea (786.03) (R06.81) Snoring (786.09) (R06.83) Calculus of kidney (592.0) (N20.0) 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, 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) Ureteral stone (592.1) (N20.1) Abnormal menses (626.9) (N92.6) Menorrhagia (626.2) (N92.0) Amenorrhea (626.0) (N91.2) Chronic sinusitis (473.9) (J32.9) Impaired glucose tolerance (790.22) (R73.02) Hypertrophy of both inferior nasal turbinates (478.0) (J34.3 ) Nasal septal deviation (470) (J34.2) Anosmia (781.1) (R43.0) Allergy, drug (V14.9) (Z88.9) Allergies and Adverse Reactions Amoxicillin TABS (Allergy) Reaction: Hiv es Bactrim TABS (Allergy) Reaction: Hives Ceftin TABS (Allergy) Reaction: Hives Cipro TABS (Allergy) Reaction: Hives Contrast Media Ready-Box MISC (Allergy) Reaction: Hives, Swelling Doxycycline Monohydrate CAPS (Allergy) R eaction: Angioedema, Hives Flagyl TABS (Allergy) Reaction: Hives Flomax CAPS (Adverse Event) Reaction: Di zziness Penicillins (Allergy) Medications hydroCHLOROthiazide 12.5 MG Oral Tablet; TAKE 1 TABLET BY MOUTH EVERY DAY CLARA Arora Start: 28-May-2018 Quantity: 30 Refills: 1 Ventolin HFA 108 (90 Base) MCG/ACT Inhal ation Aerosol Solution; INHALE 1 PUFF EVERY 4 HOURS NEEDED. Start: 15-Aug-2017 Refills: 0 8 GM Inhaler ZyrTEC Allergy 10 MG Oral Capsule; TAKE 1 CAPSULE Daily Quantity: 30 Refills: 5 metFORMIN HCl ER 500 MG Oral Tablet Exte nded Release 24 Hour; Take 1 tablet twice daily Start: 01-May-2018 Refills: 0 Ibuprofen TABS; TAKE 2 TABLET Twice daily PRN Refills: 0 Montelukast Sodium 10 MG Oral Tablet; TAKE 1 TABLET Pattie Laguerre Start: 02-Oct-2017 Quantity: 30 Refills: 11 Fluticasone Propionate 50 MCG/ACT Nasal Suspension; two sprays in each nostril twice daily Pattie Victoria Start: 17-Dec-2017 Quantity: 2 9.9 ML Bottle Refills: 11 Symbicort 160-4.5 MCG/ACT Inhalation Aer osol; INHALE 1 PUFFS Twice daily as needed. Pattie Guthrie Start: 15-Aug-2017 Quantity: 1 6 GM Inhaler Refills: 0 Procedures History of Cholecystectomy Status: Compl eted Immunizations Tdap (Adacel) On: May-2012 Fluzone Quadrivalent 0.5 ML Intramuscular Suspension On: Feb-2017 Family History aunt Family history of diabetes mellitus (V18.0) (Z83.3) Status: Active Mother Family history of hypertension (V17.49) (Z82.49) Status: Act arminda uncle Family history of kidney stones (V18.69) (Z84.1) Status: Act arminda Grandfather Family history of colon cancer (V16.0) (Z80.0) Status: Activ e Grandfather Family history of colon cancer (V16.0) (Z80.0) Status: Activ e Grandmother Family history of cardiac disorder (V17.49) (Z82.49) Status: Active Unknown Family Member Family history of bleeding disorder (V18.3) Status: Active Comments: Family History (Z83.2) natural son Family history of Environmental allergies (V15.09) (Z91.09) Status: Active Social History - Smoking Status Never smoker Plan of Treatment Planned Encounters Appointment; Pedro Arora M.D. Start: 26-Jan-2019 10:45 R equest Planned Observations Planned Goals not documented Results X-Ray Chest 1 View Laboratory: [facility] Diagnostic Portable (Pending) Imaging [address] [facility] 14-Jun-2018 15:45 X-Ray Chest 1 VW Portable (CXR1P) [facility] [place] [phone] XRay Report Patient: WESTON BISHOP Admit Date: 9 MR#: [id number] Address1: [address] [place] [address] Acct ID:[id number] Address2: Date: 1975 [facility] Zip: [place] [address] Age: 43 Location: ED Sex: F Room/Bed: Att Phy: Diagnosis: FLU LIKE SX Sweetie Phy: Pedro Arora MD Service Date: 04/ 28/19 Fam Phy: Interpreting Phy: Issac Willis her Admit Phy: Ordering Phy: Ab Calles DO cc: XR chest 1V portable HISTORY: 43 years-old Female Dyspnea acute shortness of breath COMPARISON: Chest radiographs 11/19/2015 TECHNIQUE: Portable AP view the chest FINDINGS: Cardiomediastinal and hilar silhouettes are unremarkable. Mild right hemidiaphragmatic elevation isnew from prior. There is a focal 3.6 cm opacity of the left upper lung. No pneumothorax, pleural effusion or overt pulmonary edema. Bones appear grossly intact. IMPRESSION: 1. 3.6 cm ovoid opacity of the left upper lung may reflect an area of focal pneumonia. Correlate clinically. Follow-up imaging to document resolution is recommended. 2. New mild right hemidiaphragmatic elevation. The above report was generated using voice recognition software. It may contain grammatical, syntaxor spelling errors. Electronically signed by: Iván Rajput M.D. 06/14/2018 3:47 PM Dictated: 06/14/18 1545 Transcribed: 06/14/18 1545 Troponin I (Pending) Laboratory: [facility] Laboratory [address] [facility] [address] tel: 14-Jun-2018 20:57 TROPONIN (cTnI) < 0.015 ng/ml Range: 0- 0.045 ng/ml Troponin I (Pending) Laboratory: [facility] Laboratory [address] [facility] [address] tel: 15-Jun-2018 5:10 TROPONIN (cTnI) < 0.015 ng/ml Range: 0- 0.045 ng/ml CBC With DIFF (Pending) Laboratory: [facility] Laboratory [address] [facility] [address] tel: 15-Jun-2018 5:13 WBC 3.33 K/uL (below low Range: 4.8-10. 8 K/uL threshold) RBC 4.29 {M/uL} Range: 4.2-5.4 M/uL HEMOGLOBIN 11.5 g/dL (below low Range: 12.0-16.0 g/dL threshold) HEMATOCRIT 35.4 % (below low Range: 37- 47 % threshold) MCV 82.5 fL Range: 80-100 fL MCH 26.8 pg Range: 25-34 pg MEAN CORPUSCULAR HGB CONC 32.5 Range: 3 2-36 g/dL g/dL RED CELL DISTRIBUTION WIDTH SD Range: 3 6.4-46.3 fL 42.8 fL RED CELL DISTRIBUTION WIDTH CV Range: 1 1.5-14.5 % 14.3 % PLATELET COUNT 220 K/uL Range: 130-400 K/uL MEAN PLATELET VOLUME 10.0 fL Range: 7.4 -10.4 fL NEUT % 49.3 % Range: % LYMPH % 32.4 % Range: % MONO % 9.6 % Range: % EOS % 7.8 % Range: % BASO % 0.3 % Range: % IG% 0.6 % Range: % Comments: IG paramet er reflects the combination of Metas, Myelos andPromyelocytes. Neutrophils (Auto) 1.64 K/uL Range: 1. 4-6.5 K/uL LYMPH ABS # 1.08 K/uL (below low Range: 1.2-3.4 K/uL threshold) MONO ABS # 0.32 K/uL Range: 0.11-0.59 K /uL EOS ABS # 0.26 K/uL Range: 0-0.5 K/uL BASO ABS # 0.01 K/uL Range: 0-0.2 K/uL IG# 0.02 K/uL Range: 0.00-0.02 K/ uL Basic Metabolic Panel Laboratory: [facility] Laboratory (Pending) [address] [facility] [address] tel: 15-Jun-2018 5:13 SODIUM 141 mmol/L Range: 136-145 mmol /L POTASSIUM 3.7 mmol/L Range: 3.5-5.1 mmo l/L CHLORIDE 109 mmol/L (above high Range: 98-107 mmol/L threshold) CARBON DIOXIDE 24 mmol/L Range: 21-32 m mol/L ANION GAP 8.0 Range: 3-11 BLOOD UREA NITROGEN 6 mg/dl Range: 7-18 mg/dl (below low threshold) CREATININE 0.63 mg/dl Range: 0.6-1.2 mg /dl Estimated Creatinine Clearance Range: m l/min 134.7 ml/min Comments: Est. Creat inine Clearance (Mod Cockcroft-Gault) for pharmacydosing purposes. Estimated GFR () Comment s: Units: ml/min per 125.6 1.73 meters squaredT he estimated GFR (CKD-E PI equation) has not be en validatedfor inpatie nt settings and may not be an accurate reflectiono f renal function in critical ly ill patients or those wi thrapidly changing renal funct ion (e.g. VJ). Estimated GFR (Non- Comments: Uni ts: ml/min per [place]an) 108.3 1.73 meters squaredT he estimated GFR (CKD-E PI equation) has not be en validatedfor inpatie nt settings and may not be an accurate reflectiono f renal function in critical ly ill patients or those wi thrapidly changing renal funct ion (e.g. VJ). BUN/CREATININE RATIO 8.9 (below Range: 10-20 low threshold) GLUCOSE 100 mg/dl (above high Range: 70 -99 mg/dl threshold) CALCIUM 8.0 mg/dl (below low Range: 8.5 -10.1 mg/dl threshold) Encounters Appointment; Ryan Mcbride M.D. 08-Jun-2018 9:30 Encounter Diagnosis: Problem not documented Appointment; Janna Arora CRNP 12-Mar-2018 11:00 Encounter Diagnosis: Problem not documented Appointment; Pedro Arora M.D. 22-Jan-2018 14:30 Encounter Diagnosis: Problem not documented Appointment; Cooper Victoria M.D. 06-Jan-2018 8:20 Encounter Diagnosis: Problem not documented Appointment; Cooper Victoria M.D. 17-Dec-2017 15:45 Encounter Diagnosis: Problem not documented Appointment; Ryan Mcbride M.D. 05-Dec-2017 9:15 Encounter Diagnosis: Problem not documented Appointment; Pulmonary, Funct Testing 02-Oct-2017 14:00 Encounter Diagnosis: Problem not documented Appointment; Ryan Mcbride M.D. 02-Oct-2017 12:30 Encounter Diagnosis: Problem not documented Appointment; Samina Culver PA-C 16-Sep-2017 8:30 Encounter Diagnosis: Problem not documented Appointment; La Nena Guthrie M.D. 15-Aug-2017 15:45 Encounter Diagnosis: Problem not documented Appointment; Samina Culver PA-C 17-Jul-2017 8:30 Encounter Diagnosis: Problem not documented Appointment; Tena Rice DO 08-May-2017 9:20 Encounter Diagnosis: Problem not documented Appointment; Tena Rice DO 18-Jul-2016 13:00 Encounter Diagnosis: Problem not documented Appointment; Brandon Calix M.D. 24-Jun-2016 17:40 Encounter Diagnosis: Problem not documented Appointment; Pedro Arora M.D. 26-Jan-2019 10:45 Encounter Diagnosis: Problem not documented
== END 2018-06-15 11:25 | disposition home or self-care (01) ==
LOC: ED 15:02 → 2E 15:02